=== PATIENT | female | born 1965 | race Caucasian/White ===

== ENCOUNTER 2016-12-29 16:53 | Emergency (ER) | payer OTHER ==
[2016-12-29 17:47] VITALS: BP 116/59
--- NOTE | 2016-12-29 18:19 | UC ---
Skin Complaint HPI - HPI Summary HPI Summary: Was working in garden 5 days ago and felt a prick on L upper arm. The next day noticed a large red area, approx 8-10cm in diameter. Area has since faded to pink with a small dot in the center. Mild itching and soreness, but it has not increased in size since then. Had the same sensation about 3 days ago out in garden, and again had large red area the next day on L forearm that has also faded to pink without new growth. Concerned about what kind of insect or spider could be doing this. - History of Current Complaint Chief Complaint: UCSkin Time Seen by Provider: 12/29/16 17:54 Stated Complaint: INSECT BITES Hx Obtained From: Patient Hx Last Menstrual Period: 11/27/14 ?: No Onset/Duration: Sudden Onset Skin Exposure Onset/Duration: Days Ago Timing: Constant Onset Severity: Mild Current Severity: Mild Location: Discrete Character: Swelling, Pruritus, Pain, Redness Aggravating: Nothing Alleviating: Nothing Associated Signs & Symptoms: Positive: Negative Related History: Insect Bite/Sting - Allergy/Home Medications Allergies/Adverse Reactions: Allergies Allergy/AdvReac Type Severity Reaction Status Date / Time No Known Allergies Allergy Verified 12/29/16 17:47 Review of Systems Constitutional: Negative Skin: Other - spots L arm Eyes: Negative ENT: Negative Respiratory: Negative Cardiovascular: Negative Gastrointestinal: Negative Genitourinary: Negative Motor: Negative Neurovascular: Negative Musculoskeletal: Negative Neurological: Negative Psychological: Negative All Other Systems Reviewed And Are Negative: Yes PMH/Surg Hx/FS Hx/Imm Hx Endocrine History Of: Denies: Diabetes, Thyroid Disease Cardiovascular History Of: Denies: Cardiac Disorders, Hypertension, Pacemaker/ICD Respiratory History Of: Denies: COPD, Asthma GI/ History Of: Denies: Ulcer Cancer History Of: Denies: Breast Cancer - Surgical History Surgical History: Yes Surgery Procedure, Year, and Place: x 2, fibroid adenoma removal of the breast - Family History Known Family History: Positive: Hypertension - Social History Alcohol Use: Occasionally Substance Use Type: None Smoking Status (MU): Never Smoked Tobacco Have You Smoked in the Last Year: No Physical Exam Triage Information Reviewed: Yes Appearance: Well-Appearing, No Pain Distress, Well-Nourished Vital Signs: Initial Vital Signs Temp 97.5 F 12/29/16 17:42 Pulse 64 12/29/16 17:42 BP 116/59 12/29/16 17:42 Pulse Ox 100 12/29/16 17:42 Vital Signs Reviewed: Yes Eye Exam: Normal Eyes: Positive: Conjunctiva Clear ENT Exam: Normal ENT: Positive: Normal ENT inspection, Hearing grossly normal, Pharynx normal, TMs normal Dental Exam: Normal Neck exam: Normal Neck: Positive: Supple, Nontender, No Lymphadenopathy Respiratory Exam: Normal Respiratory: Positive: Chest non-tender, Lungs clear, Normal breath sounds, No respiratory distress, No accessory muscle use Cardiovascular Exam: Normal Cardiovascular: Positive: RRR, No Murmur Musculoskeletal Exam: Normal Neurological Exam: Normal Neurological: Positive: Alert Psychological Exam: Normal Skin: Positive: significant lesion(s) - 2 round, well-defined approx 8cm diameter round areas on L arm with post-inflammatory hyperpigmentation and small red dots in the center Course/Dx - Diagnoses Provider Diagnoses: insect stings Discharge - Discharge Plan Condition: Stable Disposition: HOME Patient Education Materials: Insect Bite or Sting (ED) Referrals: Rolando Belcher MD [Primary Care Provider] - Additional Instructions: Your skin reactions are quite normal for any large local reaction to an insect sting/bite. Other than ticks, there are not any local insects that are likely to carry infection, and there are no local spiders or insects that will cause major damage from venom alone (outside of serious allergic reactions). Come back if you have spreading redness or worsening symptoms. Most insect stings will peak in severity within 2-3 days and then rapidly fade.
== END 2016-12-29 18:12 | disposition home or self-care (01) ==
LOC: UCEAST 16:53
DX: S40.862A Insect bite (nonvenomous) of left upper arm, initial encounter (principal); W57.XXXA Bitten or stung by nonvenomous insect and other nonvenomous arthropods, initial encounter; Y93.9 Activity, unspecified; Y92.9 Unspecified place or not applicable
CPT/HCPCS: 99211; G0463

== ENCOUNTER 2017-04-01 08:20 | Emergency (ER) | payer OTHER ==
--- NOTE | 2017-04-01 10:21 | RAD ---
Indication: Injury sustained in fall yesterday. Pain in the first phalanx and proximal interphalangeal joint. Pain radiating into the palm of the hand. Comparison: No relevant prior exams available on the [facility] [place]. Technique: 3 views RIGHT third finger REPORT AND IMPRESSION: Normal articular alignment and preserved joint spaces. No cortical disruption or suspicious trabecular irregularity to suggest fracture. Mild nonfocal soft tissue swelling.
[2017-04-01 10:50] VITALS: BP 105/66
--- NOTE | 2017-04-01 13:15 | UC ---
Gautam Lopez Benjamin, scribed for Nathalie Sanchez MD on 04/01/17 at 0958 . Hand/Wrist HPI - HPI Summary HPI Summary: 51yo female c/o right middle finger pain and swelling since yesterday s/p trip and fall while hiking. Hand was outstretched behind her, thinks struck middle finger on [place]. Pain is proximal 3rd finger with swelling / bruising. No prox hand or wrist pain. No neck or other joint pain. Her right 3rd finger is also swollen. Limited ROM due to swelling and pain. - History Of Current Complaint Chief Complaint: UCUpperExtremity Stated Complaint: FINGER INJURY Hx Obtained From: Patient Hx Last Menstrual Period: 03/11/17 Onset/Duration: Gradual Onset, Lasting Days - 1 day, Still Present Severity Initially: Mild Severity Currently: Mild Pain Intensity: 3 Pain Scale Used: 0-10 Numeric Character Of Pain: Throbbing Aggravating Factor(s): Movement Alleviating: Rest, Ice Associated Signs And Symptoms: Positive: Swelling - Allergies/Home Medications Allergies/Adverse Reactions: Allergies Allergy/AdvReac Type Severity Reaction Status Date / Time No Known Allergies Allergy Verified 04/01/17 09:06 PMH/Surg Hx/FS Hx/Imm Hx Previously Healthy: Yes Cancer History: Breast Cancer - Surgical History Surgical History: Yes Surgery Procedure, Year, and Place: x 2, fibroid adenoma removal of the breast - Family History Known Family History: Positive: Hypertension - Social History Occupation: Unemployed Lives: With Family Alcohol Use: Occasionally Substance Use Type: None Smoking Status (MU): Never Smoked Tobacco Have You Smoked in the Last Year: No Review of Systems Constitutional: Other - SEE HPI Skin: Negative Eyes: Negative ENT: Negative Respiratory: Negative Cardiovascular: Negative Gastrointestinal: Negative Genitourinary: Negative Motor: Negative Neurovascular: Negative Musculoskeletal: Arthralgia - right 3rd finger, Decreased ROM - right 3rd finger , Edema - right 3rd finger Neurological: Negative Psychological: Negative All Other Systems Reviewed And Are Negative: Yes Physical Exam Triage Information Reviewed: Yes Appearance: Well-Nourished Vital Signs: Initial Vital Signs Temp 98.5 F 04/01/17 09:07 Pulse 61 04/01/17 09:07 Resp 16 04/01/17 09:07 BP 120/54 04/01/17 09:07 Pulse Ox 100 04/01/17 09:07 Vital Signs Reviewed: Yes Eye Exam: Normal ENT Exam: Normal Neck exam: Normal Respiratory Exam: Normal Cardiovascular Exam: Normal Abdominal Exam: Normal - no c/o Musculoskeletal Exam: Other - Tender PIP and prox phalanx. + swelling. CR < 2 sec. + sens LT present. No prox hand pain. Skin intact. Unable to bend fully 2/2 edema. Neurological Exam: Normal - see above Psychological Exam: Normal Skin Exam: Normal Skin: Negative: rashes Diagnostics - Radiology Right middle finger XR Xray Interpretation: No Acute Changes - REPORT AND IMPRESSION: Normal articular alignment and preserved joint spaces. No cortical disruption or suspicious trabecular irregularity to suggest fracture. Mild nonfocal soft tissue swelling. Radiology Interpretation Completed By: Radiologist Hand/Wrist Course/Dx - Course Course Of Treatment: Reviewed pt's medications list and allergies. Blood pressure noted. REviewed xray with pt. Reviewed instructions (see avs) and splint instructions with pt. Questions as posed answered to the best of my ability. - Differential Dx/Diagnosis Provider Diagnoses: Acute R 3rd finger sprain and contusion Discharge - Discharge Plan Condition: Stable Disposition: HOME Patient Education Materials: Ibuprofen (By mouth), Finger Sprain (ED) Referrals: Rolando Belcher MD [Primary Care Provider] - Additional Instructions: Please follow up with your primary care provider, per routine. Seek medical attention for worse or new problems in the meantime. Finger splint for 3 days (unless painful, then remove it), then as needed for comfort. The documentation as recorded by the Gautam diallo Benjamin accurately reflects the service I personally performed and the decisions made by me, Nathalie Sanchez MD.
== END 2017-04-01 10:50 | disposition home or self-care (01) ==
LOC: UCEAST 08:20
DX: S63.612A Unspecified sprain of right middle finger, initial encounter (principal); S60.031A Contusion of right middle finger without damage to nail, initial encounter; W01.0XXA Fall on same level from slipping, tripping and stumbling without subsequent striking against object, initial encounter; Y93.01 Activity, walking, marching and hiking; Y92.9 Unspecified place or not applicable; Z85.3 Personal history of malignant neoplasm of breast
CPT/HCPCS: 73140; 99213; G0463